=== PATIENT | male | born 1965 | race Caucasian/White ===

== ENCOUNTER → 2018-06-16 | Outpatient (CLI) | payer BC | END | disposition home or self-care (01) | LOC: LABWHC1 16:24 | PROVIDERS: ATTEND Thoracic Surgery (Cardiothoracic Vascular Surgery) | DX: E63.8 Other specified nutritional deficiencies (principal); E13.621 Other specified diabetes mellitus with foot ulcer; M79.604 Pain in right leg; M79.605 Pain in left leg | CPT/HCPCS: 36415; 84134 ==

== ENCOUNTER 2024-03-17 12:44 | Emergency (ER) | payer BC ==
--- NOTE | 2024-03-17 13:40 | ED ---
Lower Extremity Injury HPI - General Chief Complaint: Extremity Injury, Lower Stated Complaint: Pain in L foot Time Seen by Provider: 03/17/24 13:02 Source: patient, RN notes reviewed Mode of arrival: ambulatory Limitations: no limitations - History of Present Illness Initial Comments: This is a 58-year-old male with a history of diabetes and peripheral neuropathy presents emergency room chief complaint of left foot pain. Patient said he rolled his ankle outside last week and experiencing ecchymosis and edema of the left foot. He states he has noticed a blister forming on the medial forefoot and anterior foot with associated erythema and edema. Denies recent antibiotic use. Denies fevers, nausea, vomiting, weakness. That he is still being able to ambulate on the foot with minimal pain. States that he has been taking Tylenol and ibuprofen at home. - Related Data Home Medications Medication Instructions Recorded Confirmed Aspirin 81 mg PO DAILY 05/08/14 08/03/18 Lysine 1 tab PO DAILY 05/08/14 08/03/18 Amlodipine/Valsartan/Hcthiazid 1 each PO Q6HR 06/16/18 08/03/18 [[id number]-[id number] 5-160-12.5 mg] Ascorbic Acid [Vitamin C] 500 mg PO DAILY 06/16/18 08/03/18 Atorvastatin [Lipitor] 20 mg PO DAILY 06/16/18 08/03/18 Fluticasone Propionate [Flovent 50 mcg INHALATION Q6HR 06/16/18 08/03/18 Diskus] Folic Acid 0.8 mg PO DAILY 06/16/18 08/03/18 Gabapentin [Neurontin] 100 mg PO BID 06/16/18 08/03/18 Ibuprofen [Motrin] 400 mg PO Q6HR PRN 06/16/18 08/03/18 Multivitamin [Men's Multi-Vitamin] 1 each PO DAILY 06/16/18 08/03/18 metFORMIN HCL [Glucophage] 500 mg PO BID 06/16/18 08/03/18 Previous Rx's Medication Instructions Recorded Doxycycline [Vibramycin] 100 mg PO BID #20 capsule 03/17/24 Allergies Allergy/AdvReac Type Severity Reaction Status Date / Time No Known Allergies Allergy Verified 03/17/24 12:52 Review of Systems ROS Statement: Those systems with pertinent positive or pertinent negative responses have been documented in the HPI. ROS Other: All systems not noted in ROS Statement are negative. Past Medical History Past Medical History: Coronary Artery Disease (CAD), Diabetes Mellitus, Hyperlipidemia, Hypertension History of Any Multi-Drug Resistant Organisms: None Reported Past Surgical History: No Surgical Hx Reported Past Psychological History: No Psychological Hx Reported Smoking Status: Never smoker Past Alcohol Use History: Abuse, Daily Past Drug Use History: Marijuana - Past Family History Father Family Medical History: Chest Pain / Angina, Coronary Artery Disease (CAD), Myocardial Infarction (SD) General Exam - General Exam Comments Initial Comments: Visual Physical Exam Vital signs reviewed General: Well-appearing, nontoxic, no acute distress. Head: Normocephalic, atraumatic Eyes: PERRLA, EOMI ENT: Airway patent Chest: Nonlabored breathing Skin: No visual rash, normal skin tone Neuro: Alert and oriented 3 Musculoskeletal: No gross abnormalities Limitations: no limitations General appearance: alert, in no apparent distress Head exam: Present: atraumatic, normocephalic, normal inspection Eye exam: Present: normal appearance, PERRL, EOMI. Absent: scleral icterus, conjunctival injection, periorbital swelling ENT exam: Present: normal exam, mucous membranes moist Neck exam: Present: normal inspection. Absent: tenderness, meningismus, lymphadenopathy Respiratory exam: Present: normal lung sounds bilaterally. Absent: respiratory distress, wheezes, rales, rhonchi, stridor Cardiovascular Exam: Present: regular rate, normal rhythm, normal heart sounds. Absent: systolic murmur, diastolic murmur, rubs, gallop, clicks GI/Abdominal exam: Present: soft, normal bowel sounds. Absent: distended, tenderness, guarding, rebound, rigid Left Lower Leg exam: Present: swelling, erythema Ankle exam: Present: tenderness, swelling (Ulcerations on the anterior foot and medial forefoot.), ecchymosis, erythema Foot/Toe exam: Present: tenderness, swelling, erythema Neurovascular tendon exam: Present: sensory deficit (Mild sensation due to peripheral neuropathy) Back exam: Present: normal inspection Neurological exam: Present: alert, oriented X3, CN II-XII intact Psychiatric exam: Present: normal affect, normal mood Skin exam: Present: warm, dry, intact, normal color. Absent: rash Course Vital Signs 03/17/24 12:50 Temperature 98.2 F Pulse Rate 92 Respiratory 20 Rate Blood Pressure 139/76 O2 Sat by Pulse 99 Oximetry Procedures - Orthopedic Splinting/Casting Injury #1 Side: left Lower Extremity Injury Location: foot Lower Extremity Immobilizer: Jorge wrap, synthetic pre-padded splint Other Orthopedic Equipment: crutches Medical Decision Making - Medical Decision Making Was pt. sent in by a medical professional or institution (, PA, SHEET METAL FOREMAN, urgent care, hospital, or [facility]...) When possible be specific @ -No Did you speak to anyone other than the patient for history (EMS, parent, family, police, friend...)? What history was obtained from this source @ -No Did you review nursing and triage notes (agree or disagree)? Why? @ -I reviewed and agree with nursing and triage notes Were old charts reviewed (outside hosp., previous admission, EMS record, old EKG, old radiological studies, urgent care reports/EKG's, [facility] records)? Report findings @ -No old charts were reviewed Differential Diagnosis (chest pain, altered mental status, abdominal pain women, abdominal pain men, vaginal bleeding, weakness, fever, dyspnea, syncope, headache, dizziness, GI bleed, back pain, seizure, CVA, palpatations, mental health, musculoskeletal)? @ -Differential Musculoskeletal Muscular strain, contusion, ligament sprain, fracture, arthritis, septic arthritis, bursitis, cellulitis, muscle spasm, nerve compression, DVT, arterial occlusion, herpes zoster, electrolyte abnormality, tumor.... This is not meant to be in all inclusive list EKG interpreted by me (3pts min.). @ None X-rays interpreted by me (1pt min.). @ -xray of the left foot and ankle reveals a gaping of the Lisfranc joint concerning for Lisfranc injury. Subcutaneous swelling on the Lisfranc joint, multifocal degeneration changes through the joints of the foot. CT interpreted by me (1pt min.). @ -None done U/S interpreted by me (1pt. min.). @ -None done What testing was considered but not performed or refused? (CT, X-rays, U/S, labs)? Why? @ -Labs etc. but deferred due to concerns for cellulitis. Patient is on experiencing any red flag symptoms that would require hospital admission. Patient will be sent home with oral antibiotics and will follow-up with wound care and psychological operations specialist. What meds were considered but not given or refused? Why? @ -None Did you discuss the management of the patient with other professionals (professionals i.e. , PA, SHEET METAL FOREMAN, lab, RT, psych nurse, medical social worker, lining scrubber, teacher, light armored vehicle officer, senior case manager)? Give summary @ -No Was smoking cessation discussed for >3mins.? @ -No Was critical care preformed (if so, how long)? @ -No Were there social determinants of health that impacted care today? How? (Homelessness, low income, unemployed, alcoholism, drug addiction, transportation, low edu. Level, literacy, decrease access to med. care, fdc, rehab)? @ -No Was there de-escalation of care discussed even if they declined (Discuss DNR or withdrawal of care, Hospice)? DNR status @ -No What co-morbidities impacted this encounter? (DM, HTN, Smoking, COPD, CAD, Cancer, CVA, ARF, Chemo, Hep., AIDS, mental health diagnosis, sleep apnea, morbid obesity)? @ -Diabetes, morbid obesity Was patient admitted / discharged? Hospital course, mention meds given and route, prescriptions, significant lab abnormalities, going to OR and other pertinent info. @ -58-year-old male with chief complaint of left foot pain. On examination the patient's left foot is noted to be edematous, erythematous and tender to palpation over the medial forefoot. Patient is able to bear weight. Has a history of peripheral neuropathy with mild sensation of the forefoot. Patient will be sent for imaging. Shared decision making with the patient that he will be started on oral antibiotics for cellulitis. There are no red flag symptoms concerning for further blood work or IV antibiotics at this time due to patient not experiencing any nausea or vomiting, fevers, altered mental status, weakness. He will be given a shot of Rocephin and discharged home on doxycycline. Patient was placed in a short leg posterior padded splint and provided with crutches to be nonweightbearing. Provided orthopedic referral to foot and ankle specialist for further evaluation from the consult of Dr. Kelley's PA. All questions were answered at bedside. Patient is stable for discharge. Case discussed with Dr. Benjamin Undiagnosed new problem with uncertain prognosis? @ -No Drug Therapy requiring intensive monitoring for toxicity (Heparin, Nitro, Insulin, Cardizem)? @ -No Were any procedures done? @ -Posterior leg splinting Diagnosis/symptom? @ -cellulitis, Lisfranc injury Acute, or Chronic, or Acute on Chronic? @ -acute Uncomplicated (without systemic symptoms) or Complicated (systemic symptoms)? @ -Uncomplicated Side effects of treatment? @ -No Exacerbation, Progression, or Severe Exacerbation? @ -No Poses a threat to life or bodily function? How? (Chest pain, USA, SD, pneumonia, PE, COPD, DKA, ARF, appy, cholecystitis, CVA, Diverticulitis, Homicidal, Suicidal, threat to staff... and all critical care pts) @ -No Disposition Clinical Impression: Lisfranc fracture, Cellulitis Narrative: Return to the emergency department symptoms worsen or not improve. Follow-up with provided foot and ankle specialist for further evaluation. continue with nonweightbearing status. Complete full course of antibiotics. Disposition: HOME SELF-CARE Condition: Good Instructions (If sedation given, give patient instructions): Cellulitis (ED), Foot Fracture in Adults (ED) Prescriptions: Doxycycline [Vibramycin] 100 mg PO BID #20 capsule Is patient prescribed a controlled substance at d/c from ED?: No Referrals: Salty Mayers DO [Primary Care Provider] - 1-2 days Cheikh Benítez MD [Medical Doctor] - 1-2 days Aron Shepard MD [REFERRING] - 1-2 days Time of Disposition: 15:34
--- NOTE | 2024-03-17 13:40 | XR ---
EXAMINATION TYPE: XR ankle complete LT, XR foot complete LT DATE OF EXAM: 03/17/2024 1:33 PM CLINICAL INDICATION:Male, 58 years old with history of Injury; [facility] COMPARISON: None TECHNIQUE: XR ankle complete LT, XR foot complete LT; ankle is imaged in frontal, lateral and obliqu e projections. FINDINGS: There is widening of the Lisfranc joint with gapping of the first and second metatarsal bases. There is diffuse soft tissue swelling throughout the foot and ankle. Multifocal disc degeneration with oste ophyte reformation trace narrowing worse at the first digit metatarsophalangeal joint. No additional fractures visualized. Calcaneal plantar spurring. IMPRESSION: 1. Gapping of the Lisfranc joint concerning for Lisfranc injury. Orthopedic consultation recommended. 2. Subcutaneous swelling around the likely secondary to injury mentioned above. 3. Multifocal degeneration changes throughout the joints of the foot worse at the first digit metatar sophalangeal joint.
[2024-03-17] MEDS: cefTRIAXone 1,000 MG VIAL (IM USE) IM STA (15:42)
[2024-03-17 17:39] VITALS: BP 148/72; PULSE 70; RESP 18; TEMP 98.5
== END 2024-03-17 16:00 | disposition home or self-care (01) ==
LOC: EC 12:44
DX: S93.325A Dislocation of tarsometatarsal joint of left foot, initial encounter (principal); L03.116 Cellulitis of left lower limb; X50.1XXA Overexertion from prolonged static or awkward postures, initial encounter
CPT/HCPCS: 99283 ×2; 96372 ×2; 29515; 73610; 73630; J0696

== ENCOUNTER → 2024-04-01 | Outpatient (CLI) | payer BC ==
--- NOTE | 2024-04-11 14:22 | CT ---
EXAMINATION TYPE: CT foot LT wo con CT DLP: 903.6 mGycm, Automated exposure control for dose reduction was used. DATE OF EXAM: 04/01/2024 11:39 AM COMPARISON: . Extremity radiograph same day. CLINICAL INDICATION:Male, 58 years old with history of S93.325A DISLOCATION OF TARSOMETATARSAL JOINT OF L; PHH, left foot pain TECHNIQUE: Axial images were obtained of the CT foot LT wo con, Additional coronal and sagittal refor matted images and soft tissue and bone window were obtained for review. 3-D reconstruction was create d on a separate workstation. Contrast used: mL of , (None if empty) Oral contrast used: (None if empty) FINDINGS: The first metatarsal is laterally displaced significantly with respect to the medial cuneif orm. Normally the medial border of the first metatarsal aligns with the medial border of the medial c uneiform. The lateral displacement of the first metatarsal is nearly 2 cm. There is an abnormal E th e first and second metatarsal indicate disruption of the Lisfranc ligament. Levels of hemorrhage are seen in the foot. No focal muscular atrophy or edema is identified. No radio paque foreign body identified. IMPRESSION: Lisfranc fracture dislocation.
== END | disposition home or self-care (01) ==
LOC: RADCTMAIN 10:55
PROVIDERS: ATTEND Podiatrist
DX: S93.325A Dislocation of tarsometatarsal joint of left foot, initial encounter (principal)

== ENCOUNTER → 2024-04-08 | Day surgery (SDC) | payer BC ==
[~2024-04-08] MED LIST: DEXAMETHASONE SOD PHOSPHATE 4 MG/ML 1 ML VIAL ONE; GLYCOPYRROLATE 0.2 MG/ML 2 ML VIAL ONE; HYDROmorphone (PF) 1 MG/ML ONE; HYDROmorphone 0.5 MG/0.5 ML SYRINGE IVP PRN; LIDOCAINE 1% (10MG/ML) FOR IV START INTRADERMA PRN; LIDOCAINE 1% INJ 10MG/ML (20 ML MDV) ONE; MIDAZOLAM 2 MG/2 ML VIAL IV PRN; MIDAZOLAM 2 MG/2 ML VIAL ONE; NEOSTIGMINE 1 MG/ML 10 ML VIAL ONE; PHENYLEPHRINE 10 MG/ML VIAL ONE; PROPOFOL 10 MG/ML 20 ML VIAL IV ONE; ROCURONIUM 10 MG/ML (5 ML VIAL) IV ONE; ROPIVACAINE 5 MG/ML 30 ML VIAL ONE; SUCCINYLCHOLINE CHLORIDE 200 MG/10 ML VIAL IV ONE; ePHEDrine 50 MG/ML 1 ML VIAL ONE; fentaNYL (PF) 50 MCG/ML 2 ML AMP IVP PRN; fentaNYL (PF) 50 MCG/ML 2 ML AMP ONE
[2024-04-08] MEDS: IV FLUID CONTINUATION 1,000 ML IV ONE (08:21)
[2024-04-08 08:26] VITALS: RESP 16; TEMP 98.1
[2024-04-08] MEDS: ONDANSETRON 4 MG/2 ML VIAL IVP ONE (08:30)
[2024-04-08] MEDS: DEXAMETHASONE SOD PHOSPHATE 4 MG/ML 1 ML VIAL IV ONE (08:30)
[2024-04-08] MEDS: LACTATED RINGERS 1,000 ML IV SCH (08:30)
[2024-04-08 08:31] LABS: Glucose,Whole Blood 121 mg/dL (70-110)
[2024-04-08] MEDS: MIDAZOLAM 2 MG/2 ML VIAL IVP ONE (08:34)
[2024-04-08] MEDS: ceFAZolin 3 GM in SODIUM CHLORIDE 0.9% 100 ML IVPB PRN (09:08)
--- NOTE | 2024-04-08 09:10 | P.ANPRN ---
Procedure Note - Anesthesia - Nerve Block Performed Left Popliteal Single Time Out Performed: Yes Date of Procedure: 04/08/24 Procedure Start Time: 08:34 Procedure Stop Time: 08:39 Location of Patient: PreOp Indication: Acute Post-Operative Pain, Analgesia, Requested by Surgeon Sedation Type: Sedate with meaningful contact maintained Preparation: Sterile Prep Position: Right Lateral Catheter: None Needle Types: Pajunk Needle Gauge: 21 Ultrasound used to visualize needle placement: Yes Ultrasound used to observe medication spread: Yes Injectate: 0.5% Ropivacaine (see comment for volume) (Ropiv 20ml+decadron 4mg, AttemptX1.) Blood Aspirated: No Pain Paresthesia on Injection Noted: No Resistance on Injection: Normal Image Stored and Saved: Yes Events: Uneventful and Well Tolerated
--- NOTE | 2024-04-08 09:11 | P.ANPRN ---
Procedure Note - Anesthesia - Nerve Block Performed Left Adductor Canal Single Time Out Performed: Yes Date of Procedure: 04/08/24 Procedure Start Time: 08:40 Procedure Stop Time: 08:45 Location of Patient: PreOp Indication: Acute Post-Operative Pain, Analgesia, Requested by Surgeon Sedation Type: Sedate with meaningful contact maintained Preparation: Sterile Prep Position: Supine Catheter: None Needle Types: Pajunk Needle Gauge: 21 Ultrasound used to visualize needle placement: Yes Ultrasound used to observe medication spread: Yes Injectate: 0.5% Ropivacaine (see comment for volume) (Ropiv 15ml+decadron 4mg, AttemptX1) Blood Aspirated: No Pain Paresthesia on Injection Noted: No Resistance on Injection: Normal Image Stored and Saved: Yes Events: Uneventful and Well Tolerated
[2024-04-08] MEDS: LACTATED RINGERS 1,000 ML IV ONE (10:16)
--- NOTE | 2024-04-08 12:19 | P.OP ---
Date of Procedure: 04/08/24 Preoperative Diagnosis: Lisfranc fracture dislocation left foot Postoperative Diagnosis: same Procedure(s) Performed: 1. Midtarsal arthrodesis (multiple joints) left foot 2. Subtalar arthrodesis left foot Implants: Audelia 4.0 cannulated screws 4, 5.0 cannulated screw 1, 7.0 mm cannulated screws 2 Anesthesia: GETA Surgeon: Rex Hudson Estimated Blood Loss (ml): 30 Pathology: none sent Condition: stable Disposition: PACU
[2024-04-08 13:37] LABS: Glucose,Whole Blood 153 mg/dL (70-110)
[2024-04-08 14:07] VITALS: BP 126/65; PULSE 70
--- NOTE | 2024-04-12 09:15 | OP ---
OPERATIVE REPORT DATE OF SERVICE : 04/08/2024 PREOPERATIVE DIAGNOSIS: Dislocated tarsometatarsal joints, left foot. POSTOPERATIVE DIAGNOSIS: Dislocated tarsometatarsal joints, left foot. PROCEDURES: 1. Subtalar joint arthrodesis, left foot. 2. Arthrodesis of multiple tarsal joints, left foot. ANESTHESIA: General with preop nerve block. HEMOSTASIS: Left thigh tourniquet at 250 mmHg. ESTIMATED BLOOD LOSS: Minimal. MATERIALS: Cannulated screws and 15 mL of bone allograft. INJECTABLES: None. SPECIMENS: None. COMPLICATIONS: None. OPERATIVE COURSE: As follows. Prior to the patient being brought to the operative room, Anesthesia administered nerve block on the left lower extremity. Then, the patient was brought into the operative room, placed on table in supine position. Time-out was taken to confirm correct patient identifiers, correct laterality of surgery, and correct procedure. Once all staff in the room were in agreement of time-out, the patient was induced and placed under general anesthesia. A well-padded tourniquet was placed on the left thigh and a wedge beneath the left hip to internally rotate the left leg. The left leg was prepped and draped in usual manner. The left leg was exsanguinated and the tourniquet inflated to 250 mmHg. Attention was directed over the sinus tarsi where a curvilinear incision was made. It was deepened down to the subcutaneous tissue careful to identify and avoid any retracting neurovascular structures and cauterize any bleeding vessels. Blunt dissection was carried down to the level of the joint capsule over the subtalar joint. This was incised and reflected to expose the joint. Once the joint was exposed, the distractor was placed over the joint. A joint prep bur was then utilized to remove the articular cartilage and subchondral bone. Once that was completed, it was aggressively fenestrated to promote bleeding and bone growth. Then, bone allograft was placed between the arthrodesis segments. Then, guidewires for 7.0 mm cannulated screws were placed on the posterior aspect of the heel. They were directed distally, superiorly, and slightly medially to cross the subtalar joint. Once the first pin was properly aligned and confirmed under fluoroscopy, second pin was then placed superior to the first and parallel in the same general trajectory across the subtalar joint. Its position was confirmed under fluoroscopy. A 7.0 mm cannulated screw was placed over the more distal wire and then advanced until the threads on the head engaged the calcaneus and that it was finished by hand until fully seated and compression was noted at the arthrodesis site. A second screw was placed over the other wire in a similar technique. There was good compression of the arthrodesis site as indicated by extrusion of the graft material from this fusion site, and fluoroscopy confirmed the proper placement of the screws in lateral and AP views as well as good compression at the arthrodesis site. The wound was then irrigated with antibiotic saline. The capsule was closed with 2-0 Vicryl, subcutaneous closed with 4-0 Monocryl, skin closure with lupe. Lupe were also used to close the entry point of the screws. The wedge was removed from the hip and then attention directed to the dorsal aspect of the foot. Wires for a distractor were placed into the medial cuneiform as well as the base of the first metatarsal, that joint was distracted and then attempted to be reduced, however was not able to be reduced due to the severe dislocation of the second tarsometatarsal joint. A long midfoot incision was made over the second tarsometatarsal joint. It was deepened down to the subcutaneous tissue careful to identify, avoid, and retract all neurovascular structures and cauterize any bleeding vessels. Dissection was continued down to the first and second tarsometatarsal joints and then dissection was continued laterally to expose the third tarsometatarsal joint. Distractor pins were placed in the base of the second metatarsal as well as the second cuneiform. The osseous structures were distracted and then attempt was made to reduce the second tarsometatarsal joint. However, there was 0 movement and it was not able to be reduced. The joint prep bur was then used to prep first the first tarsometatarsal joint so that the subchondral bone and cartilage were completely removed down to bleeding medullary bone and then a sagittal saw was used to resect the base of the second metatarsal and another bur was used to remove the articular cartilage of the distal aspect of the intermediate cuneiform. The distractor was placed on the first tarsometatarsal joint again and reduction was attempted, but the second would not move. Second compressor was then placed on the medial cuneiform and then hooked around the base of the second metatarsal and once that was engaged, the second tarsometatarsal joint was able to be reduced, which also allowed the first tarsometatarsal joint to be reduced. The distractor was removed from the first tarsometatarsal joint and replaced with a compressor so that the joint could be compressed and maintained. Wires were then placed across the first and second tarsometatarsal joint to maintain the correction. The compressor that was used for the second tarsometatarsal joint was then left over the medial cuneiform and then the hook was placed over the base of the third metatarsal and then, a compressor was again used to reduce the third tarsometatarsal joint. Once that was reduced, a bone prep bur was then placed at the joint level so that the subchondral bone and cartilage could be completely removed and the bleeding medullary bone was left. Fluoroscopic imaging showed reduction of the first, second, and third tarsometatarsal joints. Bone graft was then placed between the arthrodesis segments and then further compression was achieved across these joints to maintain the alignment and maintain the bony contact. Several cannulated screws were used to compress the first, second, and third tarsometatarsal joints, 2 were used on the first to maintain the compression and the alignment. Fluoroscopic imaging confirmed the proper placement of screws on AP and lateral views. It also showed that the joints were well reduced. A Lisfranc screw was then placed through the compression jig that was placed for the third tarsometatarsal joint reduction, so a screw was placed in the medial cuneiform across the second metatarsal base and ended in the third metatarsal base. This allowed for medial to lateral compression of the joint. All the distractors and pins were removed. The compressor was then removed and final fluoroscopic imaging showed alignment of the second through third tarsometatarsal joint and proper alignment of the hardware. The area was also stressed and there was no significant movement at the arthrodesis sites, so the wound was thoroughly irrigated with antibiotic saline. Deep closure was done with 2-0 Vicryl and skin was repaired with lupe. Arthrex jumpstart dressings were placed over all the incisions and then, a bulky dry dressing was applied to the foot. The tourniquet was released and capillary refill returned to all digits on the foot. The patient was then placed in a bulky Christine dressing and then, a well-molded plaster posterior mold/sugar-tong splint was applied to the foot and leg. The ankle and foot were held in neutral position until the splint was fully dried. Then, anesthesia was reversed and the patient was taken to recovery room with vital signs stable. MARY / KENYON: [id number] /
== END | disposition home or self-care (01) ==
LOC: OR 08:00
PROVIDERS: ATTEND Podiatrist
DX: S93.325A Dislocation of tarsometatarsal joint of left foot, initial encounter (principal); G89.18 Other acute postprocedural pain; I10 Essential (primary) hypertension; E78.5 Hyperlipidemia, unspecified; I25.10 Atherosclerotic heart disease of native coronary artery without angina pectoris; G47.33 Obstructive sleep apnea (adult) (pediatric); E11.9 Type 2 diabetes mellitus without complications; F10.90 Alcohol use, unspecified, uncomplicated; Z79.84 Long term (current) use of oral hypoglycemic drugs; Z79.899 Other long term (current) drug therapy; X58.XXXA Exposure to other specified factors, initial encounter
CPT/HCPCS: 28725; 64447; 64445; 28730; C1713 ×3; J2250; J0330; J1100; J2710; J0690; J2405; J2001; J3010; J1170; J2795; J2704; J2371